=== PATIENT | female | born 1975 | race Caucasian/White ===

== ENCOUNTER → 2020-03-30 | Outpatient (CLI) | payer OTHER | LOC: M.LAB 15:00 | PROVIDERS: ATTEND Internal Medicine Gastroenterology | DX: Z01.812 Encounter for preprocedural laboratory examination (principal); Z11.59 Encounter for screening for other viral diseases; K21.9 Gastro-esophageal reflux disease without esophagitis ==

== ENCOUNTER → 2021-06-07 | Outpatient (CLI) | payer OTHER | LOC: M.RAD 06-06 13:01 | PROVIDERS: ATTEND Family Medicine | DX: N60.01 Solitary cyst of right breast (principal); N60.02 Solitary cyst of left breast; Z87.898 Personal history of other specified conditions ==

== ENCOUNTER → 2021-08-09 | Outpatient (CLI) | payer OTHER | LOC: M.CT 15:20 | PROVIDERS: ATTEND Family Medicine | DX: K76.0 Fatty (change of) liver, not elsewhere classified (principal); N83.202 Unspecified ovarian cyst, left side; N83.201 Unspecified ovarian cyst, right side; R10.32 Left lower quadrant pain ==